=== PATIENT | female | born 1960 | race Two or more races ===

== ENCOUNTER 2024-06-20 13:49 | Emergency (ER) | payer SELFPAY ==
[~2024-06-20] VITALS: Ht 160 cm; Wt 63.6 kg
[2024-06-20 14:15] VITALS: TEMP 98.6
[2024-06-20 15:09] LABS: COVID AG,FIA SOURCE NASAL SWAB
[2024-06-20 16:15] LABS: SARS-COV2 (COVID) ANTIGEN,FIA Negative (Negative)
[2024-06-20 16:30] VITALS: BP 154/67; PULSE 76; RESP 18; O2SAT 99
[2024-06-20 16:36] LABS: INFLUENZA TYPE A NEGATIVE FOR TYPE A (NEGATIVE); INFLUENZA TYPE B NEGATIVE FOR TYPE B (NEGATIVE)
[2024-06-20] MEDS ORDERED: ACET-66 PO (16:43)
[2024-06-20] MEDS ORDERED: GUAIFDM PO (16:43)
[2024-06-20] MEDS ORDERED: IBUP-1554 PO (16:43)
== END 2024-06-20 16:56 | disposition home or self-care (01) ==
LOC: EMS 14:01
DX: J06.9 Acute upper respiratory infection, unspecified (principal); Z20.822 Contact with and (suspected) exposure to COVID-19
CPT/HCPCS: 87804; 99283